=== PATIENT | male | born 1980 | race American Indian/Alaskan Native ===

== ENCOUNTER 2022-08-03 08:12 | Emergency (ER) | payer BC ==
[2022-08-03 08:19] VITALS: BP 126/87
[2022-08-03] MEDS ORDERED: KETOROLAC 30 MG/1 ML INJ IM ONE (09:42)
[2022-08-03] MEDS ORDERED: dexAMETHasone 20 MG/5 ML VIAL IM ONE (09:42)
--- NOTE | 2022-08-03 10:14 | Emergency Department Report ---
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 Pain is described as 5/10 achy sharp. Pain shoots to lower extremities with flexion reaching twisting. Patient denies fall injury or trauma that he can recall. Is been no fevers or chills has been no loss or decrease in bowel or bladder function. There is no numbness tingling or paralysis. Patient remains ambulatory with steady gait. Patient denies other injury or complaint. MD Complaint: back pain, back injury - Related Data Previous Rx's Medication Instructions Recorded Last Taken Type Cyclobenzaprine [Flexeril] 10 mg PO TID PRN #30 tab 08/03/22 Unknown Rx Menthol/Camphor [[place] 1 applicatio TP QID #1 tube 08/03/22 Unknown Rx Ointment] Naproxen [Naprosyn] 500 mg PO BID PRN #30 tablet 08/03/22 Unknown Rx methylPREDNISolone [Medrol 4MG 4 mg PO DAILY #1 pack 08/03/22 Unknown Rx DOSEPAK (21 tabs)] Allergies Allergy/AdvReac Type Severity Reaction Status Date / Time No Known Allergies Allergy Unverified 08/03/22 08:16 ED Review of Systems ROS: Stated complaint: BACK PAIN Other details as noted in HPI Constitutional: denies: chills, fever Eyes: denies: eye pain, eye discharge, vision change ENT: denies: ear pain, throat pain Respiratory: denies: cough, shortness of breath, wheezing Cardiovascular: denies: chest pain, palpitations Endocrine: no symptoms reported Gastrointestinal: denies: abdominal pain, nausea, diarrhea Genitourinary: denies: urgency, dysuria Musculoskeletal: back pain Skin: denies: rash, lesions Neurological: denies: headache, weakness, paresthesias, vertigo Psychiatric: as per HPI Hematological/Lymphatic: denies: easy bleeding, easy bruising ED Past Medical Hx - Past Medical History Previous Medical History?: No - Surgical History Additional Surgical History: PNEUMOTHROAX - Medications Home Medications: Home Medications Medication Instructions Recorded Confirmed Last Taken Type Cyclobenzaprine [Flexeril] 10 mg PO TID PRN #30 tab 08/03/22 Unknown Rx Menthol/Camphor [[place] 1 applicatio TP QID #1 tube 08/03/22 Unknown Rx Ointment] Naproxen [Naprosyn] 500 mg PO BID PRN #30 tablet 08/03/22 Unknown Rx methylPREDNISolone [Medrol 4MG 4 mg PO DAILY #1 pack 08/03/22 Unknown Rx DOSEPAK (21 tabs)] ED Physical Exam - General Limitations: No Limitations General appearance: alert, in no apparent distress - Head Head exam: Present: normocephalic, normal inspection - Eye Eye exam: Present: EOMI Pupils: Present: normal accommodation - ENT ENT exam: Present: mucous membranes moist - Neck Neck exam: Present: normal inspection, full ROM. Absent: tenderness - Respiratory Respiratory exam: Present: normal lung sounds bilaterally. Absent: respiratory distress, wheezes - Cardiovascular Cardiovascular Exam: Present: regular rate, normal rhythm, normal heart sounds. Absent: systolic murmur, diastolic murmur, rubs, gallop - GI/Abdominal GI/Abdominal exam: Present: soft, normal bowel sounds. Absent: distended, tenderness - Rectal Rectal exam: Present: deferred - Extremities Exam Extremities exam: Present: normal inspection, full ROM, normal capillary refill. Absent: tenderness - Back Exam Back exam: Present: normal inspection, full ROM, muscle spasm, paraspinal tenderness. Absent: vertebral tenderness - Expanded Back Exam Expanded Back exam: Absent: saddle anesthesia Back exam: Positive Straight Leg Raise: Left, Right - Neurological Exam Neurological exam: Present: alert, oriented X3, CN II-XII intact, normal gait - Psychiatric Psychiatric exam: Present: normal affect, normal mood - Skin Skin exam: Present: warm, dry, intact, normal color. Absent: rash ED Course Vital Signs 08/03/22 08:18 Temperature 97.9 F Pulse Rate 76 Respiratory 18 Rate Blood Pressure 126/87 [Right] O2 Sat by Pulse 97 Oximetry ED Medical Decision Making - Radiology Data Radiology results: report reviewed, image reviewed LUMBAR SPINE 3 VIEWS INDICATION / CLINICAL INFORMATION: low back pain. COMPARISON: None available. FINDINGS: VERTEBRAE: No acute fracture. No significant malalignment. Lumbosacral transitional vertebra. DISC SPACES / FACET JOINTS:Mild lower lumbar spine facet arthropathy. Disc spaces are well preserved. PARASPINAL SOFT TISSUES:No significant abnormality. ADDITIONAL FINDINGS: None. IMPRESSION: 1. No acute findings. Signer Name: Honorio Echevarria MD Signed: 08/03/2022 10:45 AM Workstation Name: [id number] Transcribed By: NYA Dictated By: HONORIO ECHEVARRIA MD Electronically Authenticated By: HONORIO ECHEVARRIA MD Signed Date/Time: 08/03/221044 DD/ 44 TD/TT: - Medical Decision Making X-ray no fracture no dislocation or subluxation degenerative flaccid atrophy noted pain is improved with medication given in ED plan DC to home, NSAIDs, moist heat therapy, back exercises, follow-up with orthopedics in 2 to 3 days. Patient verbalized agreement and understanding with discharge plan. Patient DC'd to home in stable condition at this time. Critical care attestation.: If time is entered above; I have spent that time in minutes in the direct care of this critically ill patient, excluding procedure time. ED Disposition Clinical Impression: Lumbar strain Qualifiers: Encounter type: initial encounter Qualified Code(s): S39.012A - Strain of muscle, fascia and tendon of lower back, initial encounter Disposition: 01 HOME / SELF CARE / HOMELESS Is pt being admited?: No Does the pt Need Aspirin: No Condition: Stable Instructions: Low Back Sprain or Strain Rehab-SportsMed Additional Instructions: Take medications as prescribed, use moist heat therapy as directed. Follow-up with orthopedic doctor in 2 to 3 days. Return to emergency department if symptoms worsen. Prescriptions: Cyclobenzaprine [Flexeril] 10 mg PO TID PRN #30 tab PRN Reason: Muscle Spasm methylPREDNISolone [Medrol 4MG DOSEPAK (21 tabs)] 4 mg PO DAILY #1 pack Naproxen [Naprosyn] 500 mg PO BID PRN #30 tablet PRN Reason: pain Menthol/Camphor [[place] Ointment] 1 applicatio TP QID #1 tube Referrals: TAWANDA NOBLES MD [Staff Physician] - 3-5 Days Forms: Work/School Release Form(ED) Time of Disposition: 11:01
--- NOTE | 2022-08-03 10:50 | XRay Report ---
LUMBAR SPINE 3 VIEWS INDICATION / CLINICAL INFORMATION: low back pain. COMPARISON: None available. FINDINGS: VERTEBRAE: No acute fracture. No significant malalignment. Lumbosacral transitional vertebra. DISC SPACES / FACET JOINTS:Mild lower lumbar spine facet arthropathy. Disc spaces are well preserved. PARASPINAL SOFT TISSUES:No significant abnormality. ADDITIONAL FINDINGS: None. IMPRESSION: 1. No acute findings. Signer Name: Dwayne Isbell MD Signed: 08/03/2022 10:45 AM Workstation Name: [email or web address]
== END 2022-08-03 12:00 | disposition home or self-care (01) ==
LOC: ED 08:12
DX: S39.012A Strain of muscle, fascia and tendon of lower back, initial encounter (principal); Z79.899 Other long term (current) drug therapy; X58.XXXA Exposure to other specified factors, initial encounter; Y93.89 Activity, other specified; Y92.89 Other specified places as the place of occurrence of the external cause; Y99.8 Other external cause status
CPT/HCPCS: 72100; 96372; 99283; J1100; J1885